=== PATIENT | male | born 2000 | race Caucasian/White ===

== ENCOUNTER 2022-05-02 13:59 | Emergency (ER) | payer OTHER ==
[2022-05-02 14:17] VITALS: BP 129/82
[2022-05-02 14:38] LABS: RAPID STREP SCREEN Negative (Negative)
[2022-05-02] MEDS ORDERED: predniSONE 20 MG TABLET PO STA (15:17)
--- NOTE | 2022-05-02 15:20 | ED Physician Documentation ---
PD HPI HEENT - Stated complaint Stated Complaint: SORE THROAT - Chief complaint Chief Complaint: Heent - History obtained from History obtained from: Patient (Healthy 22-year-old gentleman who is active duty in the [employer] with 2 to 3 days of sore throat worse last night. Kept him from sleeping. No associated fevers. He has mild nasal congestion. No cough.) PD PAST MEDICAL HISTORY - Present Medications Home Medications: Ambulatory Orders Medication Instructions Recorded Confirmed predniSONE [Deltasone] 60 mg PO DAILY 5 Days #15 tablet 05/02/22 - Allergies Allergies/Adverse Reactions: Allergies Allergy/AdvReac Type Severity Reaction Status Date / Time No Known Drug Allergies Allergy Verified 05/02/22 14:17 PD ED PE NORMAL - Vitals Vital signs reviewed: Yes - General General: Alert and oriented X 3, No acute distress - HEENT HEENT: Other (Red tonsillar pillars without swelling or exudates. No cervical adenopathy.) - Cardiac Cardiac: RRR, No murmur - Respiratory Respiratory: No respiratory distress, Clear bilaterally - Abdomen Abdomen: Non tender - Neuro Neuro: Alert and oriented X 3, Normal speech Results - Vitals Vitals: Vital Signs - 24 hr 05/02/22 14:16 Temperature 36.8 C Heart Rate 60 Respiratory 20 Rate Blood Pressure 129/82 H O2 Saturation 99 Oxygen O2 Source Room air - Labs Labs: Laboratory Tests 05/02/22 14:19 Group A Strep Rapid Negative PD Medical Decision Making - ED course ED course: 22-year-old gentleman with viral pharyngitis. We will start steroids for sympto ms otherwise conservative care was advised. Departure - Departure Disposition: 01 Home, Self Care Clinical Impression: Viral pharyngitis Condition: Good Record reviewed to determine appropriate education?: Yes Instructions: ED Pharyngitis Viral Prescriptions: predniSONE [Deltasone] 60 mg PO DAILY 5 Days #15 tablet Comments: Your strep test is negative and it does not particularly look like strep. There are numerous viruses that also cause a sore throat and resolve on their own. We are starting some steroids to help with the inflammation and you can also take Tylenol and/or ibuprofen as needed for pain per package instructions. Return if worse. I sent your prescription electronically to [facility] in [place].
== END 2022-05-02 15:24 | disposition home or self-care (01) ==
LOC: ED 13:59
DX: J02.8 Acute pharyngitis due to other specified organisms (principal)
CPT/HCPCS: 87070; 87430; 99283; J7512